=== PATIENT | female | born 1990 | race Caucasian/White ===

== ENCOUNTER 2020-02-13 01:44 | Emergency (ER) | payer OTHER ==
[~2020-02-13] VITALS: Ht 157.5 cm; Wt 77.1 kg
[2020-02-13 01:44] VITALS: BP_SYST 128
[2020-02-13 03:12] VITALS: BP_SYST 133
== END 2020-02-13 03:12 | disposition home or self-care (01) ==
LOC: SED 01:44
DX: R05 Cough (principal); Z20.828 Contact with and (suspected) exposure to other viral communicable diseases
CPT/HCPCS: 71045; 99284; C9803; U0003